=== PATIENT | male | born 1940 | race Caucasian/White ===

== ENCOUNTER 2020-04-21 10:52 | Emergency (ER) | payer MEDICARE, OTHER ==
--- NOTE | 2020-04-21 11:06 | EDM.PDOC ---
ED HPI GENERAL MEDICAL PROBLEM - General Chief Complaint: Chest Pain Stated Complaint: CHEST PAINS SENT BY DOC Time Seen by Provider: 04/21/20 11:07 Source of Information: Reports: Patient, RN, RN Notes Reviewed History Limitations: Reports: No Limitations - History of Present Illness INITIAL COMMENTS - FREE TEXT/NARRATIVE: Patient presents to the ED via personal vehicle with complaints of chest pain. The patient reports this pain began on Friday evening 04/19/2020 while he was, "...working on some cabinetry" and "...hanging/hoisting a deer by hand." The states the pain is a dull ache that is localized to the left chest wall, it does not radiate. He noted the pain worsened on Friday, but has since dissipated over the past two days. He currently rates the pain at a 0/10 on a verbal scale. He has taken no analgesic medications for this pain. He denies fever, shaking chills, headache, vision changes, shortness of breath, palpitations, dyspepsia, or abdominal pain. The patient does report an uncomplicated COVID infection in early February 2020. He has not experienced pain like this before. The patient denies tobacco, alcohol, or recreational drug use. - Related Data Allergies Allergy/AdvReac Type Severity Reaction Status Date / Time No Known Allergies Allergy Verified 04/21/20 11:00 Home Meds: Home Meds Candesartan Cilexetil 16 mg PO 04/21/20 [History] Dutasteride [Avodart] 0.5 mg PO DAILY 04/21/20 [History] Levothyroxine [Synthroid] 50 mcg PO ACBREAKFAST 04/21/20 [History] Omeprazole 20 mg PO ONETIME 04/21/20 [History] ED ROS GENERAL - Review of Systems Review Of Systems: Comprehensive ROS is negative, except as noted in HPI. ED EXAM, GENERAL - Physical Exam Exam: See Below Exam Limited By: No Limitations General Appearance: Alert, WD/WN, No Apparent Distress Eye Exam: Bilateral Eye: EOMI, Normal Inspection, PERRL Ears: Normal External Exam, Hearing Loss Head: Atraumatic, Normocephalic Neck: Normal Inspection, Supple, Non-Tender, Full Range of Motion Respiratory/Chest: No Respiratory Distress, Lungs Clear, Normal Breath Sounds, No Accessory Muscle Use, Chest Non-Tender Cardiovascular: Normal Peripheral Pulses, Regular Rate, Rhythm, No Edema, No Gallop, No JVD, No Murmur, No Rub Peripheral Pulses: 2+: Radial (L), Radial (R), Dorsalis Pedis (L), Dorsalis Pedis (R) GI/Abdominal: Normal Bowel Sounds, Soft, Non-Tender, No Distention, No Mass, Pelvis Stable Back Exam: Normal Inspection, Full Range of Motion Extremities: Normal Inspection, Normal Range of Motion, Non-Tender, No Pedal Edema, Normal Capillary Refill Neurological: Alert, Oriented, CN II-XII Intact, Normal Cognition, Normal Gait, No Motor/Sensory Deficits Psychiatric: Normal Affect, Normal Mood Skin Exam: Warm, Dry, Intact, Normal Color, No Rash. No: Ecchymosis, Erythema, Mottled, Pallor, Petechiae #1 Interpretation EKG Date: 04/21/20 Time: 11:01 Rhythm: NSR Rate (Beats/Min): 83 [place]: Normal P-Wave: Present QRS: Normal ST-T: Normal QT: Normal Comparison: NA - No Prior EKG EKG Interpretation Comments: NSR; No evidence of acute ischemia Course - Vital Signs Last Recorded V/S: Last Vital Signs Temp 97.2 F 04/21/20 11:06 Pulse 85 04/21/20 11:06 Resp 11 L 04/21/20 11:06 BP 130/91 H 04/21/20 11:06 Pulse Ox 100 04/21/20 11:06 - Orders/Labs/Meds Orders: Active Orders 24 hr Category Date Time Status EKG Documentation Completion [RC] STAT Care 04/21/20 11:01 Active CULTURE BLOOD [BC] Stat Lab 04/21/20 11:09 Received UA RFX ALEXANDR AND CULT IF INDIC [URIN] Stat Lab 04/21/20 11:02 Ordered Labs: Laboratory Tests 04/21/20 04/21/20 04/21/20 Range/Units 11:09 11:09 11:09 WBC 5.6 (5.0-10.0) 10^3/uL RBC 4.75 (4.6-6.2) 10^6/uL Hgb 14.9 (14.0-18.0) g/dL Hct 43.5 (40.0-54.0) % MCV 91.6 (80-100) fL MCH 31.4 (27.0-34.0) pg MCHC 34.3 (33.0-35.0) g/dL Plt Count 217 (150-450) 10^3/uL Neut % (Auto) 44.3 (42.2-75.2) % Lymph % (Auto) 39.6 (20.5-50.1) % [place] % (Auto) 9.2 H (2-8) % Eos % (Auto) 6.2 H (1.0-3.0) % Baso % (Auto) 0.7 (0.0-1.0) % PT 10.3 (9.0-12.0) SEC INR 1.1 (0.9-1.2) APTT 27.2 (22.0-34.0) SEC D-Dimer, Quantitative 184 (0-400) ng/mL Sodium 138 (136-145) mmol/L Potassium 3.9 (3.5-5.1) mmol/L Chloride 101 (98-107) mmol/L Carbon Dioxide 27 (21-32) mmol/L Anion Gap 13.9 H (7-13) mEq/L BUN 12 (7-18) mg/dL Creatinine 1.04 (0.70-1.30) mg/dL Est Cr Clr Drug Dosing 53.68 mL/min Estimated GFR (MDRD) > 60 BUN/Creatinine Ratio 11.5 (No establ ref range) Glucose 103 H (74-99) mg/dL Lactic Acid (0.4-2.0) mmol/L Calcium 8.5 (8.5-10.1) mg/dL Total Bilirubin 1.6 H (0.2-1.0) mg/dL AST 17 (15-37) U/L ALT 26 (16-63) U/L Alkaline Phosphatase 32 L (46-116) U/L Troponin I < 0.017 (0.000-0.056) ng/mL C-Reactive Protein < 0.2 (0.0-0.9) mg/dL Total Protein 7.5 (6.4-8.2) g/dL Albumin 3.7 (3.4-5.0) g/dL Globulin 3.8 Albumin/Globulin Ratio 1.0 // Range/Units 11:09 WBC (5.0-10.0) 10^3/uL RBC (4.6-6.2) 10^6/uL Hgb (14.0-18.0) g/dL Hct (40.0-54.0) % MCV (80-100) fL MCH (27.0-34.0) pg MCHC (33.0-35.0) g/dL Plt Count (150-450) 10^3/uL Neut % (Auto) (42.2-75.2) % Lymph % (Auto) (20.5-50.1) % [place] % (Auto) (2-8) % Eos % (Auto) (1.0-3.0) % Baso % (Auto) (0.0-1.0) % PT (9.0-12.0) SEC INR (0.9-1.2) APTT (22.0-34.0) SEC D-Dimer, Quantitative (0-400) ng/mL Sodium (136-145) mmol/L Potassium (3.5-5.1) mmol/L Chloride (98-107) mmol/L Carbon Dioxide (21-32) mmol/L Anion Gap (7-13) mEq/L BUN (7-18) mg/dL Creatinine (0.70-1.30) mg/dL Est Cr Clr Drug Dosing mL/min Estimated GFR (MDRD) BUN/Creatinine Ratio (No establ ref range) Glucose (74-99) mg/dL Lactic Acid 0.8 (0.4-2.0) mmol/L Calcium (8.5-10.1) mg/dL Total Bilirubin (0.2-1.0) mg/dL AST (15-37) U/L ALT (16-63) U/L Alkaline Phosphatase (46-116) U/L Troponin I (0.000-0.056) ng/mL C-Reactive Protein (0.0-0.9) mg/dL Total Protein (6.4-8.2) g/dL Albumin (3.4-5.0) g/dL Globulin Albumin/Globulin Ratio - Radiology Interpretation Free Text/Narrative:: [facility] Final Radiology Report Call: [phone] assistance Online chat: [email or web address] Name: ISAIAH GUEVARA Age: 79Years M Date: 04/21/2020 SSN: -- : [id number] Study: CR CHEST 1V FRONTAL Requesting Physician: Shanti Enriquez Images: 1 Addl Studies: Provided Clinical History: Chest pain Contrast: Contrast Medium: Contrast Amount: Contrast Method: CONFIDENTIALITY STATEMENT This report is intended only for use by the referring physician, and only in accordance with law. If you received this in error, call [phone]. Page 1 of 1 PROCEDURE INFORMATION: Exam: XR Chest, 1 View Exam date and time: 04/21/2020 11:21 AM Age: 79 years old Clinical indication: Chest pain; Type not specified TECHNIQUE: Imaging protocol: XR of the chest Views: 1 view. COMPARISON: CR CHEST PA/LAT 03/26/2011 2:14 PM FINDINGS: Lungs: The lungs are hyperinflated. Pleural space: Unremarkable. No pleural effusion. No pneumothorax. Heart/Mediastinum: Unremarkable. No cardiomegaly. Vasculature: Aortic calcifications. Bones/joints: Old left lower rib fractures. 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 Thank you for allowing us to participate in the care of your patient. Dictated and Authenticated by: Kylah Law MD 04/21/2020 11:28 AM Central Time ([place] & [place]) - Re-Assessments/Exams Free Text/Narrative Re-Assessment/Exam: 04/21/20 Cardiac workup negative for acute processes. Will treat chest wall pain, PRN, with supportive cares including heat/ice and OTC analgesics. Departure - Departure Time of Disposition: 12:02 Disposition: Home, Self-Care 01 Condition: Good Clinical Impression: Acute chest wall pain Instructions: Chest Wall Pain, [id number] Forms: ED Department Discharge Additional Instructions: Drink plenty of water to stay hydrated. You may take ibuprofen 400mg every six hours, for pain. You may take acetaminophen 650mg every six hours, for pain. You may stagger these doses so you are taking a dose every three hours, as needed. Apply alternating ice and heat to the area, as pain persists. Sepsis Event Note (ED) - Focused Exam Vital Signs: Vital Signs Temp Pulse Resp BP Pulse Ox 04/21/20 11:06 97.2 F 85 11 L 130/91 H 100 - My Orders Last 24 Hours: My Active Orders 04/21/20 11:01 EKG Documentation Completion [RC] STAT 04/21/20 11:02 UA RFX ALEXANDR AND CULT IF INDIC [URIN] Stat 04/21/20 11:09 CULTURE BLOOD [BC] Stat - Assessment/Plan Last 24 Hours: My Active Orders 04/21/20 11:01 EKG Documentation Completion [RC] STAT 04/21/20 11:02 UA RFX ALEXANDR AND CULT IF INDIC [URIN] Stat 04/21/20 11:09 CULTURE BLOOD [BC] Stat
--- NOTE | 2020-04-21 11:28 | CR ---
PROCEDURE INFORMATION: Exam: XR Chest, 1 View Exam date and time: 04/21/2020 11:21 AM Age: 79 years old Clinical indication: Chest pain; Type not specified TECHNIQUE: Imaging protocol: XR of the chest Views: 1 view. COMPARISON: CR CHEST PA/LAT 03/26/2011 2:14 PM FINDINGS: Lungs: The lungs are hyperinflated. Pleural space: Unremarkable. No pleural effusion. No pneumothorax. Heart/Mediastinum: Unremarkable. No cardiomegaly. Vasculature: Aortic calcifications. Bones/joints: Old left lower rib fractures. 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
[2020-04-21 11:42] LABS: PTT,PARTIAL THROMBOPLSTIN TIME 27.2 SEC (22.0-34.0)
[2020-04-21 11:46] LABS: ANION GAP 13.9 mEq/L (7-13); CHLORIDE,CL 101 mmol/L (98-107); SODIUM,NA 138 mmol/L (136-145)
== END 2020-04-21 12:31 | disposition home or self-care (01) ==
LOC: DL.ED 10:52
DX: R07.89 Other chest pain (principal)
CPT/HCPCS: 36415; 71045; 80053; 83605; 84484; 85025; 85379; 85610; 85730; 86140; 87040; 93005; 99285-25

== ENCOUNTER 2021-06-27 07:59 | Day surgery (SDC) | payer MEDICARE, OTHER ==
[2021-06-27] MEDS ORDERED: Tropicamide 1% Ophth Soln 15 ML Bottle EYELF ONE (08:00)
[2021-06-27] MEDS ORDERED: Sodium Chloride 0.9% 10 ML Syringe IV ONE (08:00)
[2021-06-27] MEDS ORDERED: Phenylephrine 10% Ophth Soln 5 ML Bot EYELF ONE (08:00)
[2021-06-27] MEDS ORDERED: Acetaminophen 325 MG Tab PO PRN (08:00)
[2021-06-27] MEDS ORDERED: Moxifloxacin 0.5% Ophth Soln 3 ML Bottle EYELF ONE (08:00)
[2021-06-27] MEDS ORDERED: Midazolam 1 MG/ML 2 ML SDV IV ONE (08:00)
[2021-06-27] MEDS ORDERED: Cataract Ophth Solution EYELF ONE (08:00)
[2021-06-27] MEDS ORDERED: Ondansetron 4 MG/2 ML SDV IVPUSH PRN (08:00)
[2021-06-27] MEDS ORDERED: Acetaminophen/Codeine 300-30 MG Tab PO PRN (08:00)
[2021-06-27] MEDS ORDERED: Proparacaine 0.5% Ophth Soln 15 ML Bottle EYELF ONE (08:00)
[2021-06-27] MEDS ORDERED: Dexamethasone 4 MG/ML SDV IV ONE (08:00)
[2021-06-27] MEDS ORDERED: Timolol Maleate 0.5% Ophth Soln 5 ML Bottle EYELF ONE (08:00)
[2021-06-27] MEDS ORDERED: Povidone-Iodine 5% Sterile Ophth Soln 30 ML Bottle EYELF ONE ×2 (08:00→09:12)
[2021-06-27] MEDS ORDERED: Lidocaine 1% 30 ML SDV ONE (09:12)
[2021-06-27] MEDS ORDERED: Apraclonidine 0.5% Ophth Soln 5 ML Bot EYELF ONE (09:12)
[2021-06-27] MEDS ORDERED: Tetracaine HCl/PF 0.5% 4 ML Bottle EYELF ONE (09:12)
[2021-06-27] MEDS ORDERED: Chondroitin Sulfate/Hyaluronate Sodium Ophth Inj 0.75 ML Syringe EYELF ONE (09:13)
[2021-06-27] MEDS ORDERED: Vancomycin 500 MG SDV EYELF ONE (09:13)
[2021-06-27] MEDS ORDERED: Dexamethasone/Neomycin/Polymyxin B Ophth Oint 3.5 GM Tube EYELF ONE (09:13)
[2021-06-27] MEDS ORDERED: Balanced Salt Solution Ophth Irrig 500 ML Bottle IOCULAR ONE (09:13)
[2021-06-27] MEDS ORDERED: Diclofenac Sodium 0.1% Ophth Soln 5 ML Bottle EYELF ONE (09:13)
[2021-06-27] MEDS ORDERED: Dexamethasone 4 MG/ML SDV IOCULAR ONE (09:16)
== END 2021-06-27 10:24 | disposition home or self-care (01) ==
LOC: DL.SDS 07:59
PROVIDERS: ATTEND Ophthalmology
DX: H25.812 Combined forms of age-related cataract, left eye (principal); N40.0 Benign prostatic hyperplasia without lower urinary tract symptoms; K21.9 Gastro-esophageal reflux disease without esophagitis; E78.5 Hyperlipidemia, unspecified; I10 Essential (primary) hypertension; E03.9 Hypothyroidism, unspecified; Z98.890 Other specified postprocedural states; Z79.899 Other long term (current) drug therapy; Z88.8 Allergy status to other drugs, medicaments and biological substances; Z79.82 Long term (current) use of aspirin
CPT/HCPCS: 00142; 66984; A9270; J1100; J2250; J3370; V2632

== ENCOUNTER 2021-07-11 07:29 | Day surgery (SDC) | payer MEDICARE ==
[2021-07-11] MEDS ORDERED: Ondansetron 4 MG/2 ML SDV IVPUSH PRN (07:30)
[2021-07-11] MEDS ORDERED: Cataract Ophth Solution EYERT ONE (07:30)
[2021-07-11] MEDS ORDERED: Dexamethasone 4 MG/ML SDV IV ONE (07:30)
[2021-07-11] MEDS ORDERED: Proparacaine 0.5% Ophth Soln 15 ML Bottle EYERT ONE (07:30)
[2021-07-11] MEDS ORDERED: Timolol Maleate 0.5% Ophth Soln 5 ML Bottle EYERT ONE (07:30)
[2021-07-11] MEDS ORDERED: Tropicamide 1% Ophth Soln 15 ML Bottle EYERT ONE (07:30)
[2021-07-11] MEDS ORDERED: Sodium Chloride 0.9% 10 ML Syringe IV ONE (07:30)
[2021-07-11] MEDS ORDERED: Povidone-Iodine 5% Sterile Ophth Soln 30 ML Bottle EYERT ONE ×2 (07:30→08:55)
[2021-07-11] MEDS ORDERED: Acetaminophen/Codeine 300-30 MG Tab PO PRN (07:30)
[2021-07-11] MEDS ORDERED: Sodium Chloride 0.9% 10 ML Syringe FLUSH PRN (07:30)
[2021-07-11] MEDS ORDERED: Moxifloxacin 0.5% Ophth Soln 3 ML Bottle EYERT ONE (07:30)
[2021-07-11] MEDS ORDERED: Midazolam 1 MG/ML 2 ML SDV IV ONE (07:30)
[2021-07-11] MEDS ORDERED: Acetaminophen 325 MG Tab PO PRN (07:30)
[2021-07-11] MEDS ORDERED: Phenylephrine 10% Ophth Soln 5 ML Bot EYERT ONE (07:30)
[2021-07-11] MEDS ORDERED: Tetracaine HCl/PF 0.5% 4 ML Bottle EYERT ONE (08:55)
[2021-07-11] MEDS ORDERED: Lidocaine 1% 30 ML SDV ONE (08:55)
[2021-07-11] MEDS ORDERED: Balanced Salt Solution Ophth Irrig 500 ML Bottle IOCULAR ONE (08:56)
[2021-07-11] MEDS ORDERED: Dexamethasone/Neomycin/Polymyxin B Ophth Oint 3.5 GM Tube EYERT ONE (08:56)
[2021-07-11] MEDS ORDERED: Apraclonidine 0.5% Ophth Soln 5 ML Bot EYERT ONE (08:56)
[2021-07-11] MEDS ORDERED: Vancomycin 500 MG SDV EYERT ONE (08:56)
[2021-07-11] MEDS ORDERED: Diclofenac Sodium 0.1% Ophth Soln 5 ML Bottle EYERT ONE (08:56)
[2021-07-11] MEDS ORDERED: Chondroitin Sulfate/Hyaluronate Sodium Ophth Inj 0.75 ML Syringe EYERT ONE (08:56)
== END 2021-07-11 09:53 | disposition home or self-care (01) ==
LOC: DL.SDS 07:29
PROVIDERS: ATTEND Ophthalmology
DX: H25.811 Combined forms of age-related cataract, right eye (principal); N40.0 Benign prostatic hyperplasia without lower urinary tract symptoms; K21.9 Gastro-esophageal reflux disease without esophagitis; E78.5 Hyperlipidemia, unspecified; I10 Essential (primary) hypertension; E03.9 Hypothyroidism, unspecified; Z98.890 Other specified postprocedural states; Z79.899 Other long term (current) drug therapy; Z79.890 Hormone replacement therapy; Z88.8 Allergy status to other drugs, medicaments and biological substances
CPT/HCPCS: A9270-GY; J1100; J2250; J3370; V2632